=== PATIENT | male | born 1980 | race Caucasian/White ===

== ENCOUNTER 2020-07-18 18:42 | Emergency (ER) | payer SELFPAY ==
[2020-07-18 19:57] VITALS: BP 116/79; PULSE 97; RESP 18; TEMP 36.7; O2SAT 97; BMI 24.7
--- NOTE | 2020-07-18 20:15 | XR_ITS ---
WS: [id number] Acute abdomen series, portable, 07/18/2020 Clinical Data: Abd Pain Comparison: None. Findings: In the chest there are no nodules, masses or effusions. The heart is normal. The pulmonary vascularity is not increased. No free air is seen beneath the diaphragms. No abnormal intra-abdominal masses or calcifications are seen. There is air in the small bowel and the colon. No air-fluid levels are seen. There is no small bowel dilatation or evidence of obstruction. XR/XR acute abdomen series [id number] Impression: Negative acute abdomen series.
--- NOTE | 2020-07-18 20:15 | W.ED.ABDPA2 ---
HPI - Abdominal Pain General: Chief Complaint: Abdominal Pain Stated Complaint: abdominal pain, vomiting, trouble breathing Time Seen by Provider: 07/18/20 20:10 History of Present Illness: HPI narrative: This patient presents to the emergency department complaining of abdominal pain nausea and vomiting. Patient states he had a bout like this back in March and resolved after a few days. Patient states he had significant weight loss with it. Patient states this began again a couple days ago and continues cannot seem to keep anything down and has severe cramping. Will do medical evaluation treat as needed MD elicited complaint: abdominal pain Onset (ago): day(s) Pain Consistency: constant Severity: moderate Quality: cramping Associated Symptoms: Reports nausea and vomiting; Denies chills, dysuria and fever(s) Review of Systems General: Reports: 10 or more systems reviewed and unremarkable except in HPI and below Const: Denies: fever(s), chills, body aches or fatigue Eyes: Denies: change in vision or blurry vision ENMT: Denies: throat pain, hoarseness or mouth pain Card: Denies: chest pain, palpitations, irregular heart rhythm, edema, swelling of feet/ankles or lightheadedness Resp: Denies: dyspnea, productive cough, non-productive cough, wheezing or pain on inspiration GI: Reports: abdominal pain, nausea and vomiting : Denies: flank pain, dysuria, urinary frequency, urinary urgency or urinary hesitancy Musc: Denies: neck pain, back pain, extremity pain, extremity swelling, joint pain, joint swelling, joint redness, joint warmth or limited range of motion Skin/Breast: Denies: rash, pruritus, erythema or skin tenderness Neuro: Denies: headache(s), numbness in extremities or weakness in extremities Psych: Denies: anxiety or depression Physical Exam Const: COMMON NORMALS: no acute distress, average body habitus, patient oriented x3, no limitations, healthy appearing, alert and well nourished HENMT: COMMON NORMALS: normocephalic, atraumatic, hearing grossly normal bilaterally, external ears normal, EAC's normal, TM's normal bilaterally, Normal external nose present, Normal nasal mucous membranes and turbinates present, moist oral mucous membranes, oropharynx normal, dentition normal and gingiva normal HEAD & SCALP: normocephalic and atraumatic NOSE: Normal external nose present and Normal nasal mucous membranes and turbinates present EXTERNAL EAR: Yes external ears normal EXTERNAL AUDITORY CANAL: EAC's normal TYMPANIC MEMBRANE: TM's normal bilaterally Neck/C-Spine: COMMON NORMALS: full ROM, no lymphadenopathy, supple, no meningeal signs, no JVD, Thyroid normal and No carotid bruits THYROID: Thyroid normal Chest: COMMONS NORMALS: normal inspection of the chest, normal palpation of entire chest wall, normal inspection of the breasts and normal palpation of the breasts Breast/axilla inspection: Yes normal inspection of the breasts BREAST/AXILLA PALPATION: Yes normal palpation of the breasts Resp: COMMON NORMALS: normal respiratory effort, No retractions, No use of accessory muscles, clear to auscultation bilaterally and percussion normal AUSCULTATION: clear to auscultation bilaterally PERCUSSION: percussion normal Cardio: COMMON NORMALS: no JVD, regular rate, regular rhythm, S1 normal heart sound present, S2 normal heart sound present, No gallops present (Cardio), No clicks present (Cardio), No murmurs present (Cardio), No rub (Cardio) and Peripheral pulses 2+ throughout RATE: regular rate RHYTHM: regular rhythm HEART SOUNDS: S1 normal heart sound present and S2 normal heart sound present PERIPHERAL PULSES: Peripheral pulses 2+ throughout GI: COMMON NORMALS: Normal to inspection, nondistended, normoactive bowel sounds present, Soft to palpation, non-tender, No hepatosplenomegaly present, no masses and no bruits PALPATION: Yes Soft to palpation and Yes No hepatosplenomegaly present : COMMON NORMALS: Yes no CVA tenderness BLADDER/KIDNEY EXAM: Yes no CVA tenderness Back/Pelvis: COMMON NORMALS: no CVA tenderness, thoracic and lumbar spine normal to inspection, no thoracic nor lumbar tenderness, thoraco-lumbar ROM normal and straight leg raise negative bilaterally Extremity: COMMON NORMALS: normal to inspection, full ROM, capillary refill normal, no joint enlargement, no clubbing, cyanosis or edema, no calf tenderness and no pedal edema Neuro: COMMON NORMALS: patient oriented x3 SENSORIUM/ORIENTATION: Yes alert MENINGEAL SIGNS: Yes no meningeal signs Course Reevaluation(s): Reevaluation #1: Evaluation for any acute findings. Labs appear to be stable. Nonspecific bowel gas only chest and abdomen x-rays. Discussed liquid patient given the following instructions Encourage p.o. fluids. Take medications as instructed. Bentyl for as needed for abdominal pain and cramping. Zofran for nausea vomiting. Advance diet as tolerated. Follow-up with PCP in 2 to 3 days. Time: 21:27 Vital Signs: Vital signs: Vital Signs Temperature 98.0 F 07/18/20 19:57 Pulse Rate 90 07/18/20 20:35 Respiratory Rate 17 07/18/20 20:35 Blood Pressure 114/79 07/18/20 20:35 Pulse Oximetry 97 07/18/20 20:35 MDM - Abdominal Pain MDM Narrative: Medical decision making narrative: Patient comes in complaining of abdominal pain with nausea vomitus been intermittent over the past several months. Negative evaluation in the emergency department for any acute findings. Patient instructed to follow-up with primary care physician for further evaluation and treatment Differential Diagnosis: Differential diagnosis abdominal pain: Likely abdominal pain Medical Records: Attestation: I reviewed the patient's medical records. Lab Data: Attestation: I reviewed the patient's lab results. Labs: Lab Results 07/18/20 07/18/20 07/18/20 Range/Units 20:12 20:27 21:10 WBC 10.9 H (4.0-10.0) 10^3/ uL RBC 4.78 (4.1-5.3) 10^6/u L Hgb 15.8 (11.7-16.6) g/dL Hct 46.0 (42.0-52.0) % MCV 96.2 H (80-94) fL MCH 33.1 (28.0-34.0) pg MCHC 34.3 (30.0-36.0) g/dL RDW 12.3 (12.1-15.1) % Plt Count 282 (130-400) 10^3/c mm MPV 10.4 (7.4-10.4) fL Neut % (Auto) 65.7 % Lymph % (Auto) 21.9 % Nelson % (Auto) 8.5 % Eos % (Auto) 3.0 % Baso % (Auto) 0.6 % Neut # (Auto) 7.14 (1.8-7.7) 10^3/u L Lymph # (Auto) 2.4 (0.8-4.8) 10^3/u L Nelson # (Auto) 0.9 (0.2-0.9) 10^3/u L Eos # (Auto) 0.3 (0.0-0.8) 10^3/u L Baso # (Auto) 0.1 (0.0-0.1) 10^3/u L Nucleated RBC % (a uto) 0 % Nucleated RBCs # 0.0 /100WBC Sodium 131 L (136-145) mmol/L Potassium 3.9 (3.5-5.1) mmol/L Chloride 97 L (98-107) mmol/L Carbon Dioxide 23 (22-29) mmol/L Anion Gap 14.9 (5-19) BUN 8 (6-20) mg/dL Creatinine 0.7 (0.7-1.2) mg/dL GFR Calculation 124.3 (90-130) mL/min Glucose 109 (65-115) mg/dL Calculated Osmolal ity 271 L (285-295) mOsm/k g Calcium 9.1 (8.5-10.5) mg/dL Total Bilirubin 0.6 (0.15-1.2) mg/dL AST 16 (0-40) U/L ALT 16 (0-41) U/L Alkaline Phosphata se 109 (40-130) IU/L Total Protein 7.4 (6.6-8.7) g/dL Albumin 4.6 (3.5-5.2) g/dL Globulin 2.8 (1.3-4.6) g/dL Lipase 94 H (13-60) U/L Urine Color Yellow (Yellow) Urine Appearance Clear (CLEAR) Urine pH 6.5 (5-7) Ur Specific Gravit y 1.005 (1.005-1.030) Urine Protein Neg (Negative) Urine Glucose (UA) Norm (Normal) Urine Ketones Negative (Negative) Urine Blood Neg (Negative) Urine Nitrate Negative (Negative) Urine Bilirubin Neg (Negative) Urine Urobilinogen Norm (Negative) mg/dL Ur Leukocyte Anahi ase Negative (Negative) Imaging Data ^: KUB: Attestation: I personally reviewed and interpreted this imaging study as follows: My impression: Negative for acute findings. Nonspecific bowel gas Discharge Plan Discharge Patient Disposition: Home Clinical Impression: Nausea & vomiting, Abdominal pain Condition: Stable Prescriptions: New dicyclomine 20 mg tablet 20 mg PO TID Qty: 10 RF: 0 No Action Advair Diskus 1 puff PO BID RF: 0 ProAir HFA 90 mcg/actuation Hfa Aerosol Inhaler 1 inh INHALATION QID PRN (Reason: Shortness Of Breath) RF: 0 Celebrex 1 tab PO DAILY RF: 0 levothyroxine 1 tab PO DAILY RF: 0 lisinopril 1 tab PO DAILY RF: 0 loratadine 1 tab PO DAILY RF: 0 omeprazole 1 tab PO DAILY RF: 0 Discharge Orders: Discharge ED (Routine); Ordered 07/18/20 Ordered By: Goran Hunter Referrals: [facility], [Primary Care Provider] - Discharge Diet: Advance as tolerated Discharge Activity: Resume usual activity Patient Instructions: Abdominal Pain (ED), Opioid Safety Activity Restrictions/Additional Instructions: Encourage p.o. fluids. Take medications as instructed. Bentyl for as needed for abdominal pain and cramping. Zofran for nausea vomiting. Advance diet as tolerated. Follow-up with PCP in 2 to 3 days. Coding Level of Care Code ED Adhesive Bandage Machine Operator for Chg Fwd Exam Comprehensive
[2020-07-18] MEDS: ondansetron 2 mg/ML SDV 2 mL 4 MG IVP (20:28)
[2020-07-18] MEDS: sodium chloride 0.9% 1,000 ML 999 ML IV (20:28)
[2020-07-18 20:30] LABS: Basophils # 0.1 10^3/uL (0.0-0.1); Basophils % 0.6 %; Hemoglobin 15.8 g/dL (11.7-16.6); Nucleated Red Blood Cells % 0 %
--- NOTE | 2020-07-18 20:30 | PC.PHAR ---
PT STATES HE TAKES SEVERAL MEDICATIONS. HE DOESN'T KNOW THE DOSAGE OF ANY OF THEM, BUT HE KNOWS THE NAMES. HE GOT THEM FROM THE [facility] AND THEY ARE CLOSED, SO I CANNOT VERIFY THEM.
[2020-07-18 20:35] VITALS: BP 114/79; PULSE 90; RESP 17; O2SAT 97
[2020-07-18 20:40] LABS: Eosinophils # 0.3 10^3/uL (0.0-0.8); Lymphocytes # 2.4 10^3/uL (0.8-4.8); Lymphocytes % 21.9 %; Mean Corpuscular HGB Conc 34.3 g/dL (30.0-36.0); Mean Corpuscular Hemoglobin 33.1 pg (28.0-34.0); Mean Corpuscular Volume 96.2 fL (80-94); Mean Platelet Volume 10.4 fL (7.4-10.4); Monocytes # 0.9 10^3/uL (0.2-0.9); Monocytes % 8.5 %; Neutrophils # 7.14 10^3/uL (1.8-7.7); Neutrophils % 65.7 %; Platelet Count 282 10^3/cmm (130-400); Red Blood Count 4.78 10^6/uL (4.1-5.3); Red Cell Distribution Width 12.3 % (12.1-15.1); White Blood Count 10.9 10^3/uL (4.0-10.0)
--- NOTE | 2020-07-18 21:00 | PC.NURSE ---
patient states he is not able to pee right now due to peeing right before he came. patient states he will try again.
[2020-07-18 21:19] LABS: Alanine Aminotransferase 16 U/L (0-41); Albumin Level 4.6 g/dL (3.5-5.2); Alkaline Phosphatase 109 IU/L (40-130); Anion Gap 14.9 (5-19); Aspartate Amino Transferase 16 U/L (0-40); Blood Urea Nitrogen 8 mg/dL (6-20); Calcium 9.1 mg/dL (8.5-10.5); Carbon Dioxide 23 mmol/L (22-29); Chloride 97 mmol/L (98-107); Globulin 2.8 g/dL (1.3-4.6); Glomerular Filtration Rate 124.3 mL/min (90-130); Glucose 109 mg/dL (65-115); Lipase 94 U/L (13-60); Osmolality Calculated 271 mOsm/kg (285-295); Potassium 3.9 mmol/L (3.5-5.1); Sodium 131 mmol/L (136-145); Total Bilirubin 0.6 mg/dL (0.15-1.2); Total Protein 7.4 g/dL (6.6-8.7)
[2020-07-18 21:21] LABS: Add Urine Microscopic? NO; Charge for UA Resulting for Rev
[2020-07-18 21:23] LABS: Bilirubin Urine Neg (Negative); Blood Urine Neg (Negative); Glucose Urine UA Norm (Normal); Ketones Urine Negative (Negative); Leukocyte Esterase Urine Negative (Negative); Nitrate Urine Negative (Negative); Protein Urine Neg (Negative); Specific Gravity, Urine 1.005 (1.005-1.030); Urine Appearance Clear (CLEAR); Urine Color Yellow (Yellow); Urobilinogen Urine Norm (Negative); pH Urine 6.5 (5-7)
[2020-07-18 21:32] LABS: Amphetamines Screen Urine Negative (Negative); Barbiturates Screen Urine Negative (Negative); Benzodiazepines Screen Urine Negative (Negative); Cocaine Screen Urine Negative (Negative); Opiate Screen Urine Negative (Negative); PCP Screen Urine Negative (Negative); THC Screen Urine Positive (Negative)
[2020-07-18 21:41] VITALS: BP 130/83; PULSE 88; RESP 16; O2SAT 95
== END 2020-07-18 21:50 | disposition home or self-care (01) ==
PROVIDERS: Emergency Provider Emergency Medicine
DX: R10.9 Unspecified abdominal pain (principal); R11.2 Nausea with vomiting, unspecified
CPT/HCPCS: 74022; 80053; 80306; 81003; 83690; 85025; 96361; 96374; 99283; J2405; J7030

== ENCOUNTER 2020-08-04 08:47 | Outpatient (CLI) | payer SELFPAY ==
--- NOTE | 2020-08-04 08:58 | CT_ITS ---
WS: [id number] CT ABDOMEN AND PELVIS WITH CONTRAST HISTORY: RECURRENT N/V TECHNIQUE: Imaging performed of the abdomen and pelvis with IV contrast. Single phase imaging of the abdomen. Coronal and sagittal reformats are submitted. All CT scans at [facility] use at least one of these dose optimization techniques: automated exposure control; mA and/or kV adjustment per patient size (includes targeted exams where dose is matched to clinical indication); or iterativ e reconstruction. IV CONTRAST: Omnipaque 300; 95 mL IV. Oral contrast: Yes. DLP: 1046.22 mGycm COMPARISON: None available. Lower thorax: Focal scar or atelectasis at the LEFT base. Heart is normal size. No hiatal hernia. Liver/biliary system: Normal size with no intrahepatic dilatation. Gallbladder: Normal. No gallstones or wall thickening. No pericholecystic fluid. Pancreas: Normal size pancreas and pancreatic duct. No adjacent inflammation. Spleen: Normal size spleen. No mass or infarct. Adrenal glands: Normal. Right kidney: Normal. Left kidney: Normal. Aorta: Normal. Lymphadenopathy: None. Free fluid: None. GI tract: Normal appendix. Mild diffuse fecal retention. No mucosal thickening or obstruction. No str ictures identified. Abdominal wall: Unremarkable abdominal wall. No hernia. Pelvis: No free fluid or adenopathy within the pelvis. Bones: Unremarkable. CT/CT abdomen pelvis w con* [id number] IMPRESSION: 1. No acute abdominal or pelvic abnormalities. 2. Normal appendix. 3. No adenopathy or free fluid. 4. Mild constipation.
[2020-08-04] MEDS: iohexol 300 mg/mL 50 mL Btl PO (08:59)
[2020-08-04] MEDS: iohexol 300 mg/mL 100 mL Btl IV (10:36)
== END 2020-08-04 08:48 | disposition home or self-care (01) ==
LOC: RADWPI 08:50
PROVIDERS: Visit Provider General Practice
DX: R11.2 Nausea with vomiting, unspecified (principal); K59.00 Constipation, unspecified
CPT/HCPCS: 74177; Q9967

== ENCOUNTER → 2020-09-18 12:22 | Outpatient (BNVA) | payer SELFPAY | PROVIDERS: Visit Provider Internal Medicine | DX: Z01.812 Encounter for preprocedural laboratory examination (principal); R11.2 Nausea with vomiting, unspecified; Z20.822 Contact with and (suspected) exposure to COVID-19 | CPT/HCPCS: 87635 ==

== ENCOUNTER 2020-09-22 08:36 | Day surgery (SDC) | payer SELFPAY ==
[2020-09-20 11:03] VITALS: BMI 22.8
--- NOTE | 2020-09-22 08:50 | ANES.PREANE2 ---
Pre-Anesthetic Assessment Pre-Anesthetic Assessment: Height/Weight: Height 1.75 m Weight 70.307 kg Preop Diagnosis: Nausea and vomiting Proposed Procedure: Operation Date: 09/22/20 10:15 Proposed Procedures p EGD 55926 r11.2(Not Applicable) - Zaid Coates MD Familial anesthetic complications: None Was Beta Lobito taken within 24 hours: N/A Was Clonidine taken within 24 hours: N/A Last intake: > 8 hrs Social: Social History: Alcohol (2-3 beers a day) and Tobacco Exam: Pre-Anes Outpt Exam: alert, oriented x 3, clear to auscultation bilaterally and regular rate & rhythm Airway: Cervical ROM: WNL MP: 1 Dentition: False Pulmonary: Pulmonary: Asthma (chronic - takes inhaler on regular basis) Comments: He believes he may have sleep apnea (STOP-BANG snores, tired during day, witnessed apnea, Hypertension, age, gender) CV/HEM: CV/HEM: HTN GI: GI: GERD Metabolic: Metabolic: Thyroid Musc/skel: Musc/skel: Lower Back Pain and OA/DJD Anesthetic Plan: ASA status: 2 Anesthesia: MAC Risk of > 500 ml blood loss (7ml/kg in children): No PFSH Anesthesia PFSH: Family History (Updated 09/12/20 @ 14:55 by KLAUS Worthington) Father Cancer Grandfather Hypertension Social History (Updated 09/12/20 @ 14:55 by KLAUS Worthington) Smoking and tobacco status: current every day smoker Alcohol intake: current Alcohol intake frequency: 0-2 Drinks per Day Adopted: No Marital status: Number of children: 1 service: No History of recent travel: No Data Anesthesia Cardiac Studies: No Data to Display
--- NOTE | 2020-09-22 09:15 | P.HP_ITS ---
Same Day Surgery H&P Indication for Procedure/HPI DATE OF PROCEDURE: September 22, 2020 CHIEF COMPLAINT/INDICATIONFOR SURGICAL PROCEDURE: Early satiety PREOP DIAGNOSIS: Nausea and vomiting PLANNED PROCEDRUE: Operation Date: 09/22/20 10:15 Proposed Procedures p EGD 83900 r11.2(Not Applicable) - Zaid Coates MD Medications/Allergies* Home Medications Medication Instructions Recorded Confirmed Type Advair Diskus 1 puff PO BID 07/18/20 09/20/20 History albuterol sulfate [ProAir HFA] 1 inh INHALATION QID PRN 07/18/20 09/20/20 History levothyroxine 1 tab PO DAILY 07/18/20 09/20/20 History lisinopril 1 tab PO DAILY 07/18/20 09/20/20 History loratadine 1 tab PO DAILY 07/18/20 09/20/20 History omeprazole 1 tab PO DAILY 07/18/20 09/20/20 History meloxicam 15 mg PO DAILY 09/20/20 09/20/20 History Allergies/Adverse Reactions Allergy/AdvReac Type Severity Reaction Status Date / Time No Known Allergies Allergy Verified 09/12/20 14:51 Pertinent History/Comorbid Conditions* Family History (Updated 09/12/20 @ 14:55 by KLAUS Worthington) Cancer Father Hypertension Grandfather Social History Smoking and tobacco status: current every day smoker Alcohol intake: current Alcohol intake frequency: 0-2 Drinks per Day Adopted: No Marital status: Number of children: 1 service: No History of recent travel: No Pertinent Exam Findings alert, oriented x 3, clear to auscultation bilaterally, regular rate & rhythm, operative site marked and procedure specific exam findings Recommendations Surgery/Procedure today Coding Level of Care Code Acute Paper Machine Back Tender for Fidel Asif
[2020-09-22 09:53] VITALS: BP 119/73; PULSE 72; RESP 18; TEMP 36.6; O2SAT 97
[2020-09-22] MEDS: sodium chloride 0.9% 1,000 ML 30 ML IV (10:30)
[2020-09-22 11:25] VITALS: BP 108/62; PULSE 82; RESP 16; TEMP 36.8; O2SAT 91
[2020-09-22 11:48] VITALS: BP 112/66; PULSE 83; RESP 18; O2SAT 95
[2020-09-25 05:57] LABS: H. Pylori / CLO Test Negative
== END 2020-09-22 12:12 | disposition home or self-care (01) ==
PROVIDERS: Visit Provider Internal Medicine
PROC: 0DJ08ZZ Inspection of Upper Intestinal Tract, Via Natural or Artificial Opening Endoscopic (ICD-10-PCS; CPT 43235; principal; 2020-09-22 10:15)
DX: K29.70 Gastritis, unspecified, without bleeding (principal); R68.81 Early satiety; R11.2 Nausea with vomiting, unspecified; F17.210 Nicotine dependence, cigarettes, uncomplicated; J45.909 Unspecified asthma, uncomplicated; I10 Essential (primary) hypertension; K21.9 Gastro-esophageal reflux disease without esophagitis; M19.90 Unspecified osteoarthritis, unspecified site
CPT/HCPCS: 43239; 87077; 96360; 96361; J7030

== ENCOUNTER 2020-11-23 18:36 | Outpatient (REF) | payer SELFPAY ==
[2020-11-23 20:30] LABS: Thyroid Stimulating Hormone 3.61 uIU/mL (0.27-4.20)
== END 2020-11-23 18:37 | disposition home or self-care (01) ==
LOC: LAB 18:36
PROVIDERS: Visit Provider General Practice
DX: E03.9 Hypothyroidism, unspecified (principal)
CPT/HCPCS: 84443